=== PATIENT | male | born 1950 | race Caucasian/White ===

== ENCOUNTER 2016-08-29 | Outpatient (CLI) | END 2016-08-29 11:08 | disposition critical access hospital (66) | CPT/HCPCS: A0425; A0429 ==

== ENCOUNTER 2016-08-29 11:25 | Emergency (ER) | payer BC ==
[2016-08-29] MEDS ORDERED: GADOBUTROL 15 MMOL/15 ML VIAL IVP ONE (15:32)
== END 2016-08-29 17:29 | disposition home or self-care (01) ==
DX: R41.82 Altered mental status, unspecified (principal); I45.10 Unspecified right bundle-branch block; I10 Essential (primary) hypertension
CPT/HCPCS: 36415; 70450; 70544; 70549; 70553; 80048; 81001; 85025; 93005; 93010; 99284; A9585

== ENCOUNTER 2017-08-12 10:44 | Outpatient (CLI) | payer BC, MEDICARE ==
--- NOTE | 2017-08-13 08:51 | XRAY Report ---
DATE OF SERVICE: 08/12/2017 THREE VIEW LEFT KNEE: 08/12/2017 CLINICAL INDICATION: Left knee pain. AP, lateral, sunrise views of the left knee demonstrate mild osteoarthritis. There is no evidence of acute fracture. No effusion is present. IMPRESSION: Mild osteoarthritis. TD: 08/12/2017 19:02
== END 2017-08-12 10:45 | disposition home or self-care (01) ==
LOC: DI 10:44
PROVIDERS: ATTEND Internal Medicine
DX: M17.12 Unilateral primary osteoarthritis, left knee (principal)

== ENCOUNTER 2018-03-18 14:07 | Outpatient (CLI) | payer MEDICARE ==
--- NOTE | 2018-03-18 15:45 | Ultrasound Report ---
Procedure Date: 03/18/2018 Accession Number: [id number] / [id number] Procedure: US - Duplex Ext Veins Left CPT Code: FULL RESULT: EXAM: Duplex Ext Veins Left DATE: 03/18/2018 3:31 PM CLINICAL HISTORY: ACUTE EMBOLISM AND THROMBOS UNSP DEEP VEINS OF L L COMPARISON: None. TECHNIQUE: Real-time sonographic vascular imaging was performed by the checkerer hand through the lower extremities utilizing both color-flow and Doppler spectral analysis. Multiple ict sales representative static images were saved for review. FINDINGS: Left: Common Femoral Vein (CFV): Normal. [Profunda Femoral Vein (PFV): Normal. Superficial Femoral Vein (SFV) Prox: Normal. Superficial Femoral Vein (SFV) Mid: Normal. Superficial Femoral Vein: (SFV) Dist: Normal. Visualization of calf veins is limited. Other: None. IMPRESSION: Limited calf vein visualization with no evidence of left lower extremity DVT. RADIA
== END 2018-03-18 14:08 | disposition home or self-care (01) ==
LOC: DI 14:07
PROVIDERS: ATTEND Internal Medicine
DX: I82.402 Acute embolism and thrombosis of unspecified deep veins of left lower extremity (principal)

== ENCOUNTER 2019-02-15 13:45 | Outpatient (CLI) | payer MEDICARE ==
--- NOTE | 2019-02-15 14:30 | XRAY Report ---
Reason: ATRAUMATIC MEDIAL R KNEE PAIN Procedure Date: 02/15/2019 Accession Number: [id number] / [id number] Procedure: XR - Knee 3 View RT CPT Code: FULL RESULT: EXAM: RIGHT KNEE RADIOGRAPHY EXAM DATE: 02/15/2019 01:56 PM. CLINICAL HISTORY: Atraumatic medial right knee pain. COMPARISON: KNEE 3 VIEW LT 08/12/2017 10:59 AM. TECHNIQUE: 3 views. FINDINGS: Bones: Normal. No fractures or bone lesions. Joints: A small joint effusion is noted. No subluxation. No significant joint space narrowing. Soft Tissues: Normal. No soft tissue swelling. IMPRESSION: Small joint effusion. RADIA
== END 2019-02-15 13:46 | disposition home or self-care (01) ==
LOC: DI 13:45
PROVIDERS: ATTEND Family Medicine
DX: M25.561 Pain in right knee (principal); M25.461 Effusion, right knee

== ENCOUNTER 2022-12-18 06:25 | Day surgery (SDC) | payer MEDICARE ==
[2022-12-18] MEDS: LACTATED RINGERS 1,000 ML IV ONE (06:52)
--- NOTE | 2022-12-18 07:10 | ANESTHESIA ---
Pre-Anesthesia VS, & Labs - Diagnosis history of colon polyps - Procedure colonoscopy Vital Signs: Temp Pulse Resp BP Pulse Ox O2 Flow Rate 36.6 C 70 16 127/88 H 97 12/18/22 06:31 12/18/22 06:31 12/18/22 06:31 12/18/22 06:31 12/18/22 06:31 Height: 6 ft 2 in Weight (kg): 116 kg Body Mass Index: 32.8 BMI Classification: Obese - NPO >8 hours Home Medications and Allergies Home Medications: Ambulatory Orders Ipratropium [place] 30 ml NS DAILY 12/17/22 Ipratropium [place] 30 ml NS DAILY 12/17/22 Allergies/Adverse Reactions: Allergies Allergy/AdvReac Type Severity Reaction Status Date / Time No Known Drug Allergies Allergy Verified 08/29/16 11:31 Anes History & Medical History - Anesthetic History Anesthesia Complications: reports: No previous complications - Medical History Cardiovascular: reports: Hypertension Pulmonary: reports: Sleep apnea (untreated) Gastrointestinal: reports: None Urinary: reports: None Neuro: reports: None Musculoskeletal: reports: None Endocrine/Autoimmune: reports: None Skin: reports: None Smoking Status: Never smoker Psychosocial: reports: No issues indicated History of Cancer?: No - Surgical History General: reports: Appendectomy, Colonoscopy Exam General: Alert, Oriented x3, Cooperative, No acute distress Dental: WNL Mouth Openin Fingerbreadth Neck Mobility: Normal Mallampati classification: III Thyromental Distance: 4-6 cm Mental/Cognitive Status: Alert/Oriented X3, Normal for patient Plan Anesthesia Type: General, Total IV Consent for Procedure(s) Verified and Reviewed: Yes Code Status: Attempt Resuscitation ASA classification: 3-Severe systemic disease Is this case an emergency?: No
[2022-12-18] MEDS ORDERED: PROPOFOL 500 MG/50 ML 500 MG/50 ML VIAL ONE (07:18)
--- NOTE | 2022-12-18 07:29 | HISTORY & PHYSICAL EXAMINATION ---
Chief Complaint - Chief Complaint Chief Complaint: here for colon cancer screening History of Present Illness - History Obtained From Records Reviewed: yes History obtained from: pt Exam Limitations: none - History of Present Illness HPI Comment/Other: history 2 prior colonoscopies. polyps on first scope. no polyps second scope. second scope in [place] over 7 years ago. no gi symptoms. History - Past Medical History Cardiovascular: reports: Hypertension Respiratory: reports: Sleep apnea (untreated) Neuro: reports: None Endocrine/Autoimmune: reports: None GI: reports: None : reports: None HEENT: reports: Chronic vision loss Psych: reports: None Musculoskeletal: reports: None Derm: reports: None MRSA Hx?: No - Past Surgical History General: reports: Appendectomy, Colonoscopy - POLST Patient has POLST: No Meds/Allgy - Home Medications Home Medications: Ambulatory Orders Medication Instructions Recorded Confirmed Ipratropium [place] 30 ml NS DAILY 12/17/22 12/18/22 - Allergies Allergies/Adverse Reactions: Allergies Allergy/AdvReac Type Severity Reaction Status Date / Time No Known Drug Allergies Allergy Verified 08/29/16 11:31 Review of Systems - Other Findings Other Findings: 10 pt ros as above otherwise unremarkable Exam - Vital Signs Reviewed Vital Signs: Yes Vital Signs: Vital Signs x48h Temp Pulse Resp BP Pulse Ox 12/18/22 06:31 36.6 C 70 16 127/88 H 97 - Physical Exam General Appearance: positive: No acute distress, Alert Eyes Bilateral: positive: PERRL, EOMI, No scleral icterus ENT: positive: No signs of dehydration Neck: positive: No JVD, Trachea midline Respiratory: positive: No respiratory distress Cardiovascular: positive: Regular rate & rhythm Abdomen: positive: No distention Neurologic/Psychiatric: positive: Oriented x3 Conclusion/Plan - Problem List (1) History of adenomatous polyp of colon Conclusion/Plan: plan colonoscopy. parq held and consent obtained
[2022-12-18] MEDS ORDERED: PROPOFOL 200 MG/20 ML VIAL IVP ONE (08:12)
[2022-12-18] MEDS: LACTATED RINGERS 200 ML IV ONE (08:16)
[2022-12-18 08:36] VITALS: BP 96/53
--- NOTE | 2022-12-18 12:05 | ANESTHESIA POST OP EVALUATION ---
Anesthesia Post Eval - Post Anesthesia Eval Vitals: Last Vital Signs Temp 36.2 C L 12/18/22 08:34 Pulse 59 L 12/18/22 08:34 Resp 14 12/18/22 08:34 BP 96/53 L 12/18/22 08:34 Pulse Ox 99 12/18/22 08:34 O2 Flow Rate CV Function Including HR & BP: Stable Pain Control: Satisfactory Nausea & Vomiting: Negative Mental Status: Baseline Respiratory Status: Airway Patent Hydration Status: Satisfactory Anesthesia Complications: None
== END 2022-12-18 06:26 | disposition home or self-care (01) ==
LOC: SDS 06:25
PROVIDERS: ATTEND Surgery
PROC: 0DBN8ZZ Excision of Sigmoid Colon, Via Natural or Artificial Opening Endoscopic (ICD-10-PCS; 2022-12-18)
PROC: 0DBM8ZZ Excision of Descending Colon, Via Natural or Artificial Opening Endoscopic (ICD-10-PCS; principal; 2022-12-18 07:30)
DX: Z12.11 Encounter for screening for malignant neoplasm of colon (principal); D12.4 Benign neoplasm of descending colon; D12.5 Benign neoplasm of sigmoid colon; K57.30 Diverticulosis of large intestine without perforation or abscess without bleeding; E66.9 Obesity, unspecified; Z68.32 Body mass index [BMI] 32.0-32.9, adult; G47.30 Sleep apnea, unspecified
CPT/HCPCS: 45380; J7120